=== PATIENT | male | born 1970 | race Caucasian/White ===

== ENCOUNTER 2021-09-22 05:02 | Emergency (ER) | payer MEDICARE, SELFPAY ==
[2021-09-22 05:04] VITALS: BP 153/76; PULSE 80; RESP 20; TEMP 36.7; O2SAT 98
[2021-09-22] MEDS: KETOROLAC (*BKC) 60 MG/2 ML VIAL IM (05:49)
[2021-09-22] MEDS: ONDANSETRON HCL ODT 4 MG TABLET PO (05:49)
[2021-09-22] MEDS: HYDROmorphone HCL INJ (*CRX) 1 MG/ML SYR IM (05:49)
--- NOTE | 2021-09-22 05:56 | ED.GENADULT ---
HPI - General Adult General Chief complaint: Unspecified Stated complaint: phantom limb pain Time Seen by Provider: 09/22/21 05:28 Source: patient Mode of arrival: ambulatory Limitations: no limitations History of Present Illness HPI narrative: This is a 51 year old male with history of left Above the knee amputation who presents for evaluation of phantom pain. He states he deals with this pain intermittently throughout the years. He developed an episode of pain yesterday morning. He describes pain has shoot pain that feels like it going to his foot although it is not present. She has taking ibuprofen for pain 8 hours ago. He states he has been unable sleep due to this pain. He previously was on Lyrica and Dilaudid for his pain but he stopped because he did not have good quality of life. He denies any swelling or redness to his stump. Related Data Allergies Allergy/AdvReac Type Severity Reaction Status Date / Time methadone Allergy Unknown Unknown Verified 09/22/21 05:29 morphine Allergy Unknown Hives Verified 09/22/21 05:29 Review of Systems Constitutional: Constitutional: Denies body ache(s) and Denies chills Cardiovascular: Cardiovascular: Denies chest pain at rest and Denies chest pain with activity Respiratory: Respiratory: Denies cough Gastrointestinal: Gastrointestinal: Denies nausea and Denies vomiting [facility] Past Medical History Medical History (Updated 09/22/21 @ 06:23 by Kerry Pride MD) Above knee amputation of left lower extremity Essential (primary) hypertension Phantom pain following amputation of lower limb Social History Social History Smoking status: Never smoker Alcohol intake: never Exam Const: General: cooperative and alert Nutritional Appearance: average body habitus Orientation/consciousness: patient oriented x3 Limitations: no limitations HENMT: Head: normal to inspection Eyes: EOM: EOMs intact bilaterally Resp: Effort & Inspection: normal respiratory effort Skin: General skin exam: normal color and no rashes or lesions noted Lesions: no lesions Rashes: no rashes Wounds: no wounds Neuro: General: patient oriented x3 Motor exam (neuro): 5/5 motor strength present throughout Extrem: Other: left above the knee amputation; stump - no swelling , no erythema, Psych: Appearance: grossly normal and well kempt Course Reevaluation(s) Reevaluation #1: Patient states his pain has improved. Date: 09/22/21 Time: 06:21 Vital Signs Vital signs: Vital Signs Temperature 98.0 F 09/22/21 05:04 Pulse Rate 80 09/22/21 05:04 Respiratory Rate 20 09/22/21 05:04 Blood Pressure 153/76 H 09/22/21 05:04 Pulse Oximetry 98 09/22/21 05:04 Oxygen Delivery Room Air 09/22/21 05:04 Temperature 98.0 F 09/22/21 05:04 Pulse Rate 80 09/22/21 05:04 Respiratory Rate 20 09/22/21 05:04 Blood Pressure 153/76 H 09/22/21 05:04 Pulse Oximetry 98 09/22/21 05:04 Oxygen Delivery Room Air 09/22/21 05:04 Medical Decision Making Vital Signs Vital Signs: Vital Signs Temperature 98.0 F 09/22/21 05:04 Pulse Rate 80 09/22/21 05:04 Respiratory Rate 20 09/22/21 05:04 Blood Pressure 153/76 H 09/22/21 05:04 Pulse Oximetry 98 09/22/21 05:04 Oxygen Delivery Room Air 09/22/21 05:04 Temperature 98.0 F 09/22/21 05:04 Pulse Rate 80 09/22/21 05:04 Respiratory Rate 20 09/22/21 05:04 Blood Pressure 153/76 H 09/22/21 05:04 Pulse Oximetry 98 09/22/21 05:04 Oxygen Delivery Room Air 09/22/21 05:04 Discharge Plan Discharge Clinical Impression: Phantom limb pain Patient Disposition: Home, Self-Care Condition: Stable Instructions: Antibiotic Form, Complex Regional Pain Syndrome (DC) Additional Instructions: If your pain does not improve call your primary care provider. Prescriptions: New hydrocodone-acetaminophen 5-325 mg tablet 1 tablet PO Q6H PRN (Reason: pain) Qty: 7 0RF Follow
== END 2021-09-22 06:43 | disposition home or self-care (01) ==
LOC: ANHED 06:29
PROVIDERS: Emergency Provider General Practice; PCP Family Medicine
DX: G54.6 Phantom limb syndrome with pain (principal); I10 Essential (primary) hypertension; Z89.612 Acquired absence of left leg above knee
CPT/HCPCS: 96372; 99284; A9270; J1170; J1885